=== PATIENT | male | born 1940 | race Caucasian/White ===

== ENCOUNTER 2018-09-18 07:03 | Day surgery (SDC) | payer MEDICARE, OTHER ==
[~2018-09-18] VITALS: Ht 180.3 cm; Wt 72.0 kg
[2018-09-18] VITALS (15 sets, daily range): BP systolic 121–170; BP diastolic 55–69
--- NOTE | 2018-09-18 06:15 | NUR ---
CONFIRMED PLT FUNCTION RESULT WITH LAB, RESULTS WITHIN NORMAL LIMITS PER PATHOLOGY PER MOE.
--- NOTE | 2018-09-18 06:30 | NUR ---
REPORTED PLT FUNCT TEST RESULT TO DR GARCIA.
[2018-09-18] MEDS ORDERED: MIDAZolam 5mg/ml 2ml vial IV ONE (07:10)
[2018-09-18] MEDS ORDERED: normal saline 1000ml 1,000 ML IV SCH (07:25)
[2018-09-18] MEDS ORDERED: MULT1TAB74 PO (07:27)
[2018-09-18] MEDS ORDERED: AMLO5TAB PO (07:27)
[2018-09-18] MEDS ORDERED: ATOR20TA PO (07:27)
[2018-09-18] MEDS ORDERED: LISI40TA4 PO (07:27)
[2018-09-18] MEDS ORDERED: ASPI-107 PO (07:27)
[2018-09-18 08:46] LABS: CLARITY,URINE CLEAR (Clear); COLOR,URINE YELLOW (Yellow); GLUCOSE, URINE NEGATIVE (Neg); KETONES,URINE NEGATIVE (Neg); LEUKOCYTE ESTERASE ,URINE NEGATIVE (Neg); NITRITES, URINE NEGATIVE (Neg); OCCULT BLOOD,URINE SMALL (Neg); PH,URINE 5.5 (4.8-8.0); PROTEIN,URINE >=300 mg/dl (Neg); UROBILINOGEN,URINE 0.2 E.U/dL (0.2-1.0)
[2018-09-18 08:48] LABS: UA COLLECTION TYPE NON-SPECIFIED
[2018-09-18 08:55] LABS: BACTERIA,URINE NONE SEEN /HPF (Neg); HYALINE CASTS 0-3 /LPF (NEGATIVE); MUCUS STRANDS FEW /LPF (Neg); RBC,URINE 0-2 /HPF (0-2); SQUAMOUS EPITHELIAL CELL,UR NONE SEEN /LPF (FEW); WBC,URINE NONE SEEN /HPF (0-4)
[2018-09-18] MEDS ORDERED: LIDOcaine 1% 30ml preserv. free vial SQ PRN (09:00)
[2018-09-18] MEDS ORDERED: acetaminophen w/codeine (30MG) #3 tablet PO PRN (10:05)
[2018-09-18 12:21] LABS: HEMATOCRIT 36.9 % (42.0-52.0); HEMOGLOBIN 12.4 g/dl (14.0-17.9); MEAN CORPUSCULAR HEMOGLOBIN 30.2 PG (27.0-31.0); MEAN CORPUSCULAR HGB CONC 33.6 g/dL (33.0-36.5); MEAN CORPUSCULAR VOLUME 89.8 FL (78-98); MEAN PLATELET VOLUME 8.6 FL (7.4-10.4); PLATELET COUNT 241 X10'3 (140-440); RED BLOOD COUNT 4.11 X10'6 (4.70-6.10); RED CELL DISTRIBUTION WIDTH 14.1 % (11.5-14.5); WHITE BLOOD COUNT 6.9 X10'3 (4.5-11.0)
--- NOTE | 2018-09-18 12:32 | NUR ---
reported 1200 lab results H/H to Dr. Vazquez. No new orders at this time.
--- NOTE | 2018-09-18 14:03 | NUR ---
lab at bedside to draw 1400 test
[2018-09-18 14:12] LABS: HEMATOCRIT 38.4 % (42.0-52.0); HEMOGLOBIN 12.8 g/dl (14.0-17.9); MEAN CORPUSCULAR HEMOGLOBIN 30.1 PG (27.0-31.0); MEAN CORPUSCULAR HGB CONC 33.4 g/dL (33.0-36.5); MEAN PLATELET VOLUME 8.8 FL (7.4-10.4); PLATELET COUNT 231 X10'3 (140-440); RED BLOOD COUNT 4.27 X10'6 (4.70-6.10); RED CELL DISTRIBUTION WIDTH 14.3 % (11.5-14.5); WHITE BLOOD COUNT 8.5 X10'3 (4.5-11.0)
--- NOTE | 2018-09-18 14:17 | NUR ---
reported H/H result to Dr. Vazquez. New orders given, pt may go home now. No lifting over 35lbs for 1 week. No Aspirin for 1week.
== END 2018-09-18 15:05 | disposition home or self-care (01) ==
LOC: SSTAY O 07:03
PROVIDERS: ATTEND Internal Medicine Critical Care Medicine
DX: R80.9 Proteinuria, unspecified (principal); N18.9 Chronic kidney disease, unspecified
CPT/HCPCS: 36415; 50200; 76942; 81001; 85027; J2001; J2250; J7030

== ENCOUNTER 2019-04-25 06:26 | Day surgery (SDC) | payer MEDICARE, OTHER ==
[2019-04-24 09:24] LABS: BASOPHILS # (AUTO) 0.1 X10'3 (0-0.2); BASOPHILS % (AUTO) 1.1 % (0-1); EOSINOPHILS # (AUTO) 0.3 X10'3 (0-0.9); EOSINOPHILS % (AUTO) 3.4 % (0-6); LYMPHOCYTES # (AUTO) 1.4 X10'3 (1.1-4.8); LYMPHOCYTES % (AUTO) 17.2 % (21-51); MEAN CORPUSCULAR HEMOGLOBIN 29.8 PG (27.0-31.0); MEAN CORPUSCULAR HGB CONC 34.1 g/dL (33.0-36.5); MEAN CORPUSCULAR VOLUME 87.4 FL (78-98); MEAN PLATELET VOLUME 8.3 FL (7.4-10.4); MONOCYTES # (AUTO) 0.6 X10'3 (0-0.9); MONOCYTES % (AUTO) 8.1 % (2-12); NEUTROPHILS # (AUTO) 5.6 X10'3 (1.8-7.7); NEUTROPHILS % (AUTO) 70.2 % (42-75); PRE OP HEMATOCRIT 36.9 % (42.0-52.0); PRE OP HEMOGLOBIN 12.6 g/dL (14.0-17.9); PRE OP PLATELET COUNT 290 X10'3 (140-440); RED BLOOD COUNT 4.23 X10'6 (4.70-6.10); RED CELL DISTRIBUTION WIDTH 14.6 % (11.5-14.5)
[2019-04-24 09:32] LABS: CLARITY,URINE CLEAR (Clear); COLOR,URINE YELLOW (Yellow); GLUCOSE, URINE NEGATIVE (Neg); KETONES,URINE NEGATIVE (Neg); LEUKOCYTE ESTERASE ,URINE NEGATIVE (Neg); NITRITES, URINE NEGATIVE (Neg); OCCULT BLOOD,URINE SMALL (Neg); PH,URINE 5.5 (4.8-8.0); PROTEIN,URINE >=300 mg/dl (Neg); UROBILINOGEN,URINE 0.2 E.U/dL (0.2-1.0)
[2019-04-24 09:33] LABS: ALBUMIN 3.5 G/DL (3.4-5.0); ALKALINE PHOSPHATASE 105 IU/L (46-116); BLOOD UREA NITROGEN 37 MG/DL (7-18); BUN/CREATININE RATIO 14.2 (5.4-32.0); CALCIUM 9.1 MG/DL (8.5-10.1); CHLORIDE 112 MMOL/L (99-107); PRE OP ALT 20 U/L (30-65); PRE OP ANION GAP 8 (8-16); PRE OP AST 16 U/L (10-37); PRE OP BILIRUB, TOTAL 0.3 MG/DL (0.0-1.0); PRE OP GLUCOSE 88 MG/DL (70-104); PRE OP POTASSIUM 5.3 MMOL/L (3.4-5.1); PRE OP SODIUM 145 MMOL/L (135-145); TOTAL CARBON DIOXIDE 25.3 MMOL/L (24-32); TOTAL PROTEIN 6.9 G/DL (6.4-8.2); eGFR 24 ML/MIN
[2019-04-24 09:34] LABS: UA COLLECTION TYPE CLN CATCH MIDSTREAM
[2019-04-24 09:44] LABS: BACTERIA,URINE NONE SEEN /HPF (Neg); RBC,URINE NONE SEEN /HPF (0-2); SQUAMOUS EPITHELIAL CELL,UR FEW /LPF (FEW); WBC,URINE 0-4 /HPF (0-4)
[~2019-04-25] VITALS: Ht 180.3 cm; Wt 71.4 kg
[~2019-04-25 06:26] MED LIST: ASPI-107 PO; ATOR20TA PO; DILT240C94 PO; FINA5TAB11 PO; LISI40TA4 PO; MULT1TAB74 PO; ceFAZolin 2gm in dextrose, iso 50 ML IV ONE; famotidine 20mg tablet PO ONE; ringers solution, lacted 1,000 ML IV SCH
[2019-04-25] MEDS ORDERED: LIDOcaine 1% 30ml preserv. free vial ONE (07:18)
[2019-04-25 07:23] VITALS: BP 160/61
[2019-04-25 07:26] VITALS: BP 160/61
[2019-04-25] MEDS ORDERED: LIDOcaine 1% W/epiNEPHrine 1:100,000 20ml vial ONE (07:28)
[2019-04-25] MEDS ORDERED: ringers solution, lacted 1,000 ML IV SCH (09:21)
[2019-04-25] MEDS ORDERED: fentaNYL/PF 50MCG/1 ML 2ML syringe IV PRN ×2 (09:25)
[2019-04-25] MEDS ORDERED: ondansetron/PF 4mg/2ml inj IV PRN (09:25)
[2019-04-25] MEDS ORDERED: hydrALAZINE 20mg/ml inj. IV PRN (09:25)
[2019-04-25] MEDS ORDERED: morphine 2 MG/ML inj. syringe IV PRN (09:25)
[2019-04-25] MEDS ORDERED: morphine 4 MG/ML inj SYRINge IV PRN (09:25)
[2019-04-25] MEDS ORDERED: labetalol 20mg/4ml (5mg/ml) syringe IV PRN (09:25)
[2019-04-25] MEDS ORDERED: dexamethasone sod phosphate 10mg/ml inj ONE (09:35)
[2019-04-25] MEDS ORDERED: sevoflurane 250ml liquid IH ONE (09:35)
[2019-04-25] MEDS ORDERED: LIDOcaine 2% (20mg/ml) 5ml vial ONE (09:39)
[2019-04-25] MEDS ORDERED: fentaNYL/PF 50MCG/1 ML 2ML syringe ONE (09:39)
[2019-04-25] MEDS ORDERED: midazolam 2 mg/2 ml injection ONE (09:39)
[2019-04-25] MEDS ORDERED: propofol inj 20 ML IV ONE (09:39)
[2019-04-25] MEDS ORDERED: ondansetron/PF 4mg/2ml inj ONE (09:57)
[2019-04-25] MEDS ORDERED: ePHEDrine 50MG/ML INJ. ONE (10:05)
[2019-04-25 10:25] VITALS: BP 138/64
--- NOTE | 2019-04-25 10:25 | NUR ---
Received from OR via [facility], accompanied by Anesthesiologist Do and report given by Anesthesiolgist. Pt VS WNL, mask to 10L and sats 100%. 22G to left hand and LR IVF at 100cc/hr. Dressing to back with dermabond and island dressing. All distal pulses palpable.
[2019-04-25 10:35] VITALS: BP 144/48
[2019-04-25 10:45] VITALS: BP 146/52
[2019-04-25 10:55] VITALS: BP 151/58
--- NOTE | 2019-04-25 10:56 | NUR ---
Called per patient's request.
--- NOTE | 2019-04-25 11:35 | NUR ---
Pt discharged to vehicle by wheelchair without incident, present to drive vehicle. Pt still states he has no pain, dressing remains CDI, IV dc'd. Pt in possession of all his own belongings. He and S/O both verbalized understanding of all discharge information. Pain script written and sent to pharmacy of their choice by MD office prior to procedure.
== END 2019-04-25 11:35 | disposition home or self-care (01) ==
LOC: PAS 06:26
PROVIDERS: ATTEND Surgery
DX: D17.1 Benign lipomatous neoplasm of skin and subcutaneous tissue of trunk (principal); E11.22 Type 2 diabetes mellitus with diabetic chronic kidney disease; I12.9 Hypertensive chronic kidney disease with stage 1 through stage 4 chronic kidney disease, or unspecified chronic kidney disease; N18.9 Chronic kidney disease, unspecified; E78.00 Pure hypercholesterolemia, unspecified; Z85.038 Personal history of other malignant neoplasm of large intestine; Z98.890 Other specified postprocedural states; Z79.82 Long term (current) use of aspirin; Z79.899 Other long term (current) drug therapy; Z87.891 Personal history of nicotine dependence
CPT/HCPCS: 21931; 36415; 80053; 81001; 82948; 85025; 93005; J2001; J2250; J2405; J2704; J3010; A4618; A7000; J1100; J7120